=== PATIENT | female | born 2000 | race African-American/Black ===

== ENCOUNTER 2022-08-31 22:36 | Emergency (ER) | payer MEDICAID ==
[~2022-08-31] VITALS: Ht 165.1 cm; Wt 68.0 kg
[2022-08-31 22:44] VITALS: BP 117/68; PULSE 98; RESP 18; TEMP 98.4; O2SAT 100
[2022-09-01] MEDS ORDERED: IBUP-2028 MT (09:25)
[2022-09-01] MEDS ORDERED: METH-653 MT (09:25)
== END 2022-09-01 01:39 | disposition left against medical advice (07) ==
LOC: ER 22:36
DX: Z53.21 Procedure and treatment not carried out due to patient leaving prior to being seen by health care provider (principal)
CPT/HCPCS: 99281

== ENCOUNTER 2022-09-01 04:34 | Emergency (ER) | payer MEDICAID ==
[~2022-09-01] VITALS: Ht 165.1 cm; Wt 68.0 kg
[2022-09-01 04:56] VITALS: O2SAT 100
[2022-09-01 07:06] LABS: BASOPHILS % 0.5 % (0.0-2.0); EOSINOPHILS % 2.5 % (0.0-5.0); HEMATOCRIT. 39.5 % (36.0-48.0); HEMOGLOBIN. 13.1 g/dL (12.0-16.0); LYMPHOCYTES % 35.6 % (20.0-50.0); MEAN CORPUSCULAR HEMOGLOBIN 26.7 pg (28.0-32.0); MEAN CORPUSCULAR VOLUME 80.8 fL (81.0-99.0); MEAN PLATELET VOLUME 9.8 fl (7.4-10.4); MONOCYTES % 9.6 % (2.0-8.0); NEUTROPHILS % 51.8 % (40.0-76.0); PLATELET 197 x1000/uL (130-400); RED BLOOD CELL COUNT 4.89 mill/uL (4.2-5.4); RED CELL DISTRIBUTION WIDTH 15.2 % (11.6-14.6)
[2022-09-01 07:12] LABS: CHLORIDE 109 mEq/L (98-107)
[2022-09-01 07:29] LABS: CLARITY URINE TURBID (CLEAR); COLOR URINE YELLOW (YELLOW); KETONES URINE NEGATIVE (NEGATIVE); LEUKOCYTE ESTERASE URINE 1+ (NEGATIVE); NITRITE URINE NEGATIVE (NEGATIVE); OCCULT BLOOD URINE 1+ (NEGATIVE); PH URINE 5.5 (4.5-8.0); PROTEIN URINE NEGATIVE (NEGATIVE); SPECIFIC GRAVITY URINE 1.018 (1.005-1.030); UROBILINOGEN URINE 0.2 E.U./dL (0.2-1.0)
[2022-09-01] MEDS ORDERED: IBUP-2028 MT (09:25)
[2022-09-01] MEDS ORDERED: METH-653 MT (09:25)
[2022-09-01] MEDS ORDERED: TETANUS, DIPHTHERIA, PERTUSSIS VAC/PF 0.5ML (>10YR OLD) IM ONE (09:30)
[2022-09-01 10:30] VITALS: BP 124/71; PULSE 79; RESP 19; TEMP 98.4
== END 2022-09-01 10:31 | disposition home or self-care (01) ==
LOC: ER 04:34
DX: S91.331A Puncture wound without foreign body, right foot, initial encounter (principal); S30.1XXA Contusion of abdominal wall, initial encounter; S16.1XXA Strain of muscle, fascia and tendon at neck level, initial encounter; E78.00 Pure hypercholesterolemia, unspecified; Z88.0 Allergy status to penicillin; V43.52XA Car driver injured in collision with other type car in traffic accident, initial encounter; Y93.89 Activity, other specified; Y92.89 Other specified places as the place of occurrence of the external cause; Y99.8 Other external cause status
CPT/HCPCS: 36415; 71045; 73630; 80053; 81003; 81025; 85025; 90471; 90715; 99285